=== PATIENT | female | born 1960 | race Caucasian/White ===

== ENCOUNTER 2017-08-17 09:46 | Day surgery (SDC) | payer MEDICAID ==
[~2017-08-17] VITALS: Ht 152.4 cm; Wt 79.6 kg
[2017-08-17] MEDS ORDERED: fentaNYL/PF 50MCG/1 ML 2ML syringe ONE (09:50)
[2017-08-17] MEDS ORDERED: MIDAZolam 5mg/5ml vial ONE (09:50)
[2017-08-17] MEDS ORDERED: LIDOcaine Viscous 15ml cup ONE (09:51)
[2017-08-17] MEDS ORDERED: METF850T2 PO (10:14)
[2017-08-17 10:19] VITALS: BP 104/51
[2017-08-17 10:42] VITALS: BP 118/64
[2017-08-17 10:52] VITALS: BP 109/64
[2017-08-17 11:02] VITALS: BP 110/51
[2017-08-17 11:12] VITALS: BP 124/65
== END 2017-08-17 11:30 | disposition home or self-care (01) ==
LOC: GI LAB 09:46
PROVIDERS: ATTEND Internal Medicine Gastroenterology
DX: I85.00 Esophageal varices without bleeding (principal); K76.6 Portal hypertension; K31.89 Other diseases of stomach and duodenum; E11.9 Type 2 diabetes mellitus without complications; Z79.84 Long term (current) use of oral hypoglycemic drugs; Z98.890 Other specified postprocedural states
CPT/HCPCS: 43244; 99152; J2250; J3010; J7030; A4620; G0500

== ENCOUNTER 2017-09-14 14:10 | Day surgery (SDC) | payer MEDICAID ==
[~2017-09-14 14:10] MED LIST: METF850T2 PO
[2017-09-14 14:50] VITALS: BP 142/74
[2017-09-14] MEDS ORDERED: MIDAZolam 5mg/5ml vial ONE (14:51)
[2017-09-14] MEDS ORDERED: LIDOcaine Viscous 15ml cup ONE (14:51)
[2017-09-14] MEDS ORDERED: fentaNYL/PF 50MCG/1 ML 2ML syringe ONE (14:51)
[2017-09-14 15:11] VITALS: BP 136/59
[2017-09-14 15:21] VITALS: BP_SYST 126; BP_SYST 127; BP_DIAS 64; BP_DIAS 75
[2017-09-14 15:31] VITALS: BP 119/70
== END 2017-09-14 15:51 | disposition home or self-care (01) ==
LOC: GI LAB 14:10
PROVIDERS: ATTEND Internal Medicine Gastroenterology
DX: I85.00 Esophageal varices without bleeding (principal); K22.8 Other specified diseases of esophagus; K76.6 Portal hypertension; K31.89 Other diseases of stomach and duodenum; E11.9 Type 2 diabetes mellitus without complications; Z72.89 Other problems related to lifestyle; Z79.84 Long term (current) use of oral hypoglycemic drugs; Z98.891 History of uterine scar from previous surgery; Z98.890 Other specified postprocedural states
CPT/HCPCS: 43244; J2250; J3010; J7030; 99152; A4620; G0500

== ENCOUNTER 2017-10-19 13:01 | Day surgery (SDC) | payer MEDICAID ==
[~2017-10-19] VITALS: Ht 152.4 cm; Wt 65.9 kg
[2017-10-19 13:11] VITALS: BP 127/67
[2017-10-19] MEDS ORDERED: MIDAZolam 5mg/5ml vial ONE (14:00)
[2017-10-19] MEDS ORDERED: fentaNYL/PF 50MCG/1 ML 2ML syringe ONE (14:00)
[2017-10-19] MEDS ORDERED: LIDOcaine Viscous 15ml cup ONE (14:01)
[2017-10-19 14:19] VITALS: BP 108/59
[2017-10-19 14:29] VITALS: BP 106/58
[2017-10-19 14:39] VITALS: BP 106/61
[2017-10-19 14:49] VITALS: BP 114/61
== END 2017-10-19 15:05 | disposition home or self-care (01) ==
LOC: GI LAB 13:01
PROVIDERS: ATTEND Internal Medicine Gastroenterology
DX: I85.00 Esophageal varices without bleeding (principal); K76.6 Portal hypertension; K31.89 Other diseases of stomach and duodenum; K22.8 Other specified diseases of esophagus; E11.9 Type 2 diabetes mellitus without complications; Z79.84 Long term (current) use of oral hypoglycemic drugs; Z72.89 Other problems related to lifestyle; Z98.891 History of uterine scar from previous surgery; Z98.890 Other specified postprocedural states
CPT/HCPCS: 43244; 99152; J2250; J3010; J7030; A4620; G0500

== ENCOUNTER 2021-03-11 08:09 | Day surgery (SDC) | payer MEDICAID ==
[~2021-03-11] VITALS: Ht 157.5 cm; Wt 86.8 kg
[~2021-03-11 08:09] MED LIST changes: +METF-437 PO; -METF850T2 PO
[2021-03-11 08:25] VITALS: BP 126/65
[2021-03-11] MEDS ORDERED: fentaNYL/PF 50MCG/1 ML 2ML syringe ONE (08:31)
[2021-03-11] MEDS ORDERED: MIDAZolam 1 MG/ML 5ML VIAL ONE ×2 (08:31→08:32)
[2021-03-11] MEDS ORDERED: LIDOcaine Viscous 15ml cup ONE (08:32)
[2021-03-11] MEDS ORDERED: [UNRECOGNIZED DRUG - REMARK] (08:35)
[2021-03-11] MEDS ORDERED: SPIR50TA5 PO (09:12)
[2021-03-11] MEDS ORDERED: RIFA550T PO (09:13)
[2021-03-11] MEDS ORDERED: FURO-150 PO (09:14)
[2021-03-11] MEDS ORDERED: METF-437 PO (09:14)
[2021-03-11] MEDS ORDERED: LACT10SO3 PO (09:15)
[2021-03-11 09:50] VITALS: BP 113/59
[2021-03-11 10:00] VITALS: BP 109/61
[2021-03-11 10:10] VITALS: BP 106/61
[2021-03-11 10:20] VITALS: BP 108/56
== END 2021-03-11 10:30 | disposition home or self-care (01) ==
LOC: GI LAB 08:09
PROVIDERS: ATTEND Internal Medicine Gastroenterology
DX: I85.00 Esophageal varices without bleeding (principal); K76.6 Portal hypertension; K31.89 Other diseases of stomach and duodenum; K22.89 Other specified disease of esophagus; E11.9 Type 2 diabetes mellitus without complications; Z79.84 Long term (current) use of oral hypoglycemic drugs
CPT/HCPCS: 43235; 99152; J2250; J3010; J7040; Z7512; A4620